=== PATIENT | female | born 1990 | race Two or more races ===

== ENCOUNTER 2020-03-24 14:01 | Emergency (ER) | payer OTHER ==
[~2020-03-24] VITALS: Ht 167.6 cm; Wt 66.2 kg
[~2020-03-24 14:01] MED LIST: PRENATAL1 TAB
== END 2020-03-24 17:05 | disposition home or self-care (01) ==
LOC: ER 14:01
DX: O26.891 Other specified pregnancy related conditions, first trimester (principal); S30.0XXA Contusion of lower back and pelvis, initial encounter; V49.9XXA Car occupant (driver) (passenger) injured in unspecified traffic accident, initial encounter; Z34.01 Encounter for supervision of normal first pregnancy, first trimester; Y93.89 Activity, other specified; Y92.488 Other paved roadways as the place of occurrence of the external cause; Y99.8 Other external cause status